=== PATIENT | female | born 1945 | race Caucasian/White ===

== ENCOUNTER 2016-12-12 16:42 | Emergency (ER) | payer MEDICARE ==
[~2016-12-12] VITALS: Ht 162.6 cm; Wt 63.6 kg
[~2016-12-12 16:42] MED LIST: CALC-858 PO; FOS70 PO; MULT-1007 PO; NAPR220C11 PO; SOLI10TA2 PO; VITAMIN D PO
[2016-12-12 16:44] VITALS: BP 153/89; RESP 18; O2SAT 99
[2016-12-12 17:16] LABS: BASOPHILS % (AUTO) 0.3 % (0-3); EOSINOPHILS % (AUTO) 0.3 % (0-5); MONOCYTES % (AUTO) 4.7 % (4-12); Mean Corpuscular Volume 95.2 fL (81-100); NEUTROPHILS % (AUTO) 76.4 % (40-74); Platelet Count 287 bil/L (150-400)
[2016-12-12 17:36] LABS: Magnesium 2.3 mg/dL (1.6-2.6)
--- NOTE | 2016-12-12 18:42 | ED.REPORT ---
HPI-General Illness Date of Service Dec 12, 2016 ED Provider: Stan Marquez MD The patient is a 71 year old female w/ a hx of MS who presents to the ED due to a nosebleed onset earlier today. She was driving home from work and her nose started dripping from the right nostril for about an hour, and then stopped. An hour later, it began bleeding again for 30 minutes and stopped. The blood was going into the back of her throat. She has never had a nose bleed before. She is not on any blood thinners and denies any cold symptoms. She lives with her on [address], about a [address] Nursing Notes Stated Complaint: NOSE BLEED Chief Complaint: ENT & Mouth Allergies: Coded Allergies: No Known Allergies (Unverified , 12/12/16) Scheduled ([Vitamin D]) 1 TAB PO DAILY Alendronate-Expunged Drug, Do Not Renew! (Alendronate-Expunged Drug, Do Not Renew!) 70 Mg Tablet 70 MG PO Q7D GIVE 30 MINUTES BEFORE BREAKFAST WITH 8-OZ WATER Calcium Carb & Cit/Vitamin D3 (Calcium + D3 Er Tablet) 1 Each Tablet.er 2 EACH PO QPM Calcium Carb & Cit/Vitamin D3 (Calcium + D3 Er Tablet) 1 Each Tablet.er 1 EACH PO QAM Multivitamin (Multi-Vitamin Daily) 1 Each Tablet 1 EACH PO DAILY Solifenacin Succ-Expunged Drug, Do Not Renew! (Vesicare-Expunged Drug, Do Not Renew!) 10 Mg Tablet 10 MG PO DAILY Scheduled PRN Naproxen Sod-Expunged Drug, Do Not Renew!! (Aleve-Expunged Drug,Do Not Renew!) 220 Mg Capsule 220 MG PO PM PRN PRN General Time Seen by : 18:05 Chief Complaint Other (epistaxis) Hx Obtained From: Patient Arrived By: Walk-in Sudden in Onset?: Yes Onset Occurred: 1 - 4 hours ago Symptom Duration: Since onset Location: : Nose Severity: Current: No pain currently Recent Healthcare: No recent doctor visit, No recent hospitalization Similar Sx Previous: No Past Medical History Past Medical History MS Osteopenia Past Surgical History Reports: Back/neck surgery Smoking History Former Smoker Social History Alcohol Use: 1-3 per day Drug Use: Denies drug use Other Social History: Good social support, Ambulatory Status Cane Review of Systems epistaxis Full Review of Systems Ears / Nose / Throat: Denies: Nasal congestion Complete sys rev & neg: except as marked. Physical Exam Vital Signs Vital Signs Date Time Temp Pulse Resp B/P Pulse Ox O2 Delivery O2 Flow Rate FiO2 12/12/16 19:10 78 18 142/78 99 Room Air 12/12/16 16:44 36.4 85 18 153/89 99 Room Air Initial VS: Reviewed Head / Eyes: Atraumatic, Normocephalic, PERRL Neck: Supple, Non-tender Respiratory: Breath sounds normal, Clear to auscultation Cardiovascular: Regular rate & rhythm, Heart sounds normal Abdomen / GI: Soft, Non-tender, No guarding Extremities: Vascular intact, No swelling Skin: Warm, Dry Psychiatric: Mood/affect normal General/Constitutional: Awake, Alert, No acute distress, Well appearing, Cooperative, Not toxic appearing ENT: Atraumatic, Airway patent no active bledding no sores seen no blood in oral pharynx Interpretation & Diagnostics Lab Results Interpretation Result Diagram: 12/12/16 1705 12/12/16 1705 Test 12/12/16 17:05 White Blood Count 7.0th/mm3 (3.8-10.1) Red Blood Count 4.61mil/mm3 (3.90-5.20) Hemoglobin 14.3g/dL (12.0-15.6) Hematocrit 43.9% (35.0-46.0) Mean Corpuscular Volume 95.2fL (81-100) Mean Corpuscular Hemoglobin 31.0pg (27.0-35.0) Mean Corpuscular Hemoglobin Concent 32.6% (32.0-37.0) Red Cell Distribution Width 13.4% (12.3-15.4) Platelet Count 287bil/L (150-400) Neutrophils (%) (Auto) 76.4% (40-74) Lymphocytes (%) (Auto) 18.2% (14-46) Monocytes (%) (Auto) 4.7% (4-12) Eosinophils (%) (Auto) 0.3% (0-5) Basophils (%) (Auto) 0.3% (0-3) Sodium Level 141mEq/L (134-144) Potassium Level 4.3mEq/L (3.5-5.2) Chloride Level 102mEq/L (97-108) Carbon Dioxide Level 25mmol/L (18-29) Blood Urea Nitrogen 27mg/dL (8-27) Creatinine 0.79mg/dL (0.57-1.00) Estimat Glomerular Filtration Rate 102mL/min (>59) Glucose Level 134mg/dL (60-99) Calcium Level 9.9mg/dL (8.5-10.1) Magnesium Level 2.3mg/dL (1.6-2.6) Total Bilirubin 0.5mg/dL (0.0-1.2) Aspartate Amino Transf (AST/SGOT) 25U/L (0-50) Alanine Aminotransferase (ALT/SGPT) 37U/L (0-32) Alkaline Phosphatase 46U/L (25-165) Total Protein 6.8g/dL (6.4-8.4) Albumin 4.7g/dL (3.4-5.0) Re-Eval/Medical Decision Counseled Regarding: Diagnosis, Lab results, Need for follow-up, When/why to return to ED Discharge & Departure Primary Impression: Epistaxis Disposition: Home Discharge Condition All VS Reviewed: Yes Condition: Stable Patient Instructions: Epistaxis (ED) Additional Instructions: ED evaluation today included interview, exam and labs. There is no active bleeding, blood count and vital signs look good. We did not see a source for bleeding today. This is concerning for a posterior bleed. Since there is no bleeding at the present we will no place a packing. If you have significant recurrent bleeding that does not stop it may be needed. Use afrin nasal spray twice daily for 2 days. If you have recurrent bleeding pinch the nose firmly for 10 minutes. If this does not stop bleeding or if bleeding then drains down throat return to ED. Do not continue pinching if you are swallowing blood. Call for an ENT follow up soon. Referrals: Huy Taylor MD Attestation Portion of this note were transcribed by Vero Munson. I, Dr. Marquez, personally performed the history, physical exam, and medical decision-making: I reviewed and confirmed the accuracy for the information in the transcribed note. Signed by: kolby Solomon, 12/12/161999 copies to: Tayler Kelley PA-C; Huy Taylor MD, Donald L MD Dec 12, 2016 18:42 Vero Munson Dec 12, 2016 19:04
[2016-12-12 19:10] VITALS: BP 142/78; PULSE 78; RESP 18; O2SAT 99
== END 2016-12-12 19:10 | disposition home or self-care (01) ==
LOC: SED 16:42
DX: R04.0 Epistaxis (principal); Z87.891 Personal history of nicotine dependence